=== PATIENT | female | born 1945 | race Caucasian/White ===

== ENCOUNTER 2017-01-16 09:31 | Inpatient (IN) ==
[2017-01-16] MEDS ORDERED: NS 1,000 ML IV ONE (09:54)
[2017-01-16] MEDS ORDERED: ZOFRAN IV ONE (09:54)
[2017-01-16] MEDS ORDERED: NORCO-7.5 PO ONE (09:54)
[2017-01-16 10:24] LABS: MANUAL DIFF NEEDED? NO
[2017-01-16 10:27] LABS: BASO% 0.5 % (0.0-0.8); EOS# 0.21 X1000 (0.0-0.7); EOS% 2.2 % (0.0-10.0); HEMATOCRIT 38.2 % (37.0-47.0); HEMOGLOBIN 12.4 g/dL (12.0-16.0); IMM GRAN# 0.01 X1000 (0.0-0.04); IMM GRAN% 0.1 % (0.0-0.5); LYMPH# 1.19 X1000 (1.2-3.4); LYMPH% 12.7 % (20.5-51.1); MCH 26.8 PG (27-31); MCHC 32.5 g/dL (33-37); MCV 82.5 FL (81-99); MONO# 0.51 X1000 (0.11-0.59); MONO% 5.4 % (1.7-9.3); MPV 9.9 FL (7.4-10.4); NEUT% 79.1 % (42.2-75.2); PLT 363 X1000 (130-400); RBC 4.63 XMIL (4.2-5.4)
[2017-01-16 10:45] LABS: INR 0.93 (0.86-1.15); PROTIME 12.8 Seconds (12.1-15.5); PTT PL 30.1 Seconds (22.6-43.9)
[2017-01-16 10:47] LABS: ALBUMIN 4.5 g/dL (3.5-5.0); CALCIUM 9.2 mg/dL (8.8-10.2); POTASSIUM 3.8 mmol/L (3.5-5.1); TOTAL BILIRUBIN 0.4 mg/dL (0.20-1.00); TOTAL PROTEIN 7.9 g/dL (6.3-8.3)
[2017-01-16 10:53] LABS: URINE CULTURE PL NEEDED? NO
[2017-01-16 10:57] LABS: BILIRUBIN URINE NEGATIVE (NEGATIVE); BLOOD URINE NEGATIVE (NEGATIVE); CLARITY CLEAR (CLEAR); COLOR YELLOW; GLUCOSE URINE NEGATIVE (NEGATIVE); LEUKOCYTES URINE NEGATIVE (NEGATIVE); NITRITE URINE NEGATIVE (NEGATIVE); PROTEIN URINE NEGATIVE (NEGATIVE); SP GRAVITY URINE 1.015; UROBILINOGEN URINE NORMAL
[2017-01-16 11:28] LABS: URINE CAST NONE SEEN /LPF; URINE CRYSTAL NONE SEEN /HPF; URINE EPITHELIAL CELLS >10 /HPF (<10); URINE RBC <10 /HPF (<10); URINE SOURCE CLEAN CATCH; URINE WBC <10 /HPF (<10)
--- NOTE | 2017-01-16 12:27 | PROVIDER DOCUMENTATION ---
This chart was entered by Vilma Bradshaw Scribe, acting as scribe for Caridad Al MD. HPI-Rash/Wound/ReCheck - General Chief Complaint: Insect Bite/Sting Stated Complaint: INSECT BITE/STING Time Seen by Provider: 01/16/17 09:47 Source: patient Allergies/Adverse Reactions: Allergies Allergy/AdvReac Type Severity Reaction Status Date / Time No Known Allergies Allergy Verified 01/16/17 09:39 Home Medications: Home Medication List Medication Instructions Recorded Confirmed Last Taken Type Levothyroxine [Synthroid] 50 mcg PO DAILY 01/16/17 01/16/17 Unknown History - History of Present Illness-Dermatology Nature of Presenting Problem: 71 yo F presents to the ER with complaint of possible spider/insect bite to R arm last night. Pt has 5 x4 inch area of erythema with central bruise to inner side of R upper arm. States since she got bit she has been nauseous and had 2 episodes of diarrhea. Has a hx of strong reaction to bee stings. Location: reports: upper extremity (R upper arm) Quality: reports: painful Onset/Duration: reports: last night Context/Associated Symptoms: reports: unknown bite/sting Review of Systems - Adult - REVIEW OF SYSTEMS - ADULT Constitutional: denies: chills, fever Eyes: reports: no symptoms reported Ears, Nose, Mouth & Throat: reports: no symptoms reported Cardiovascular: reports: no symptoms reported Respiratory: denies: cough, shortness of breath Gastrointestinal: reports: diarrhea, nausea. denies: abdominal pain, vomiting Genitourinary: reports: no symptoms reported Musculoskeletal: reports: no symptoms reported Integumentary: reports: no symptoms reported Neurological: reports: no symptoms reported Psychiatric: reports: no symptoms reported Endocrine: reports: no symptoms reported Hematologic/Lymphatic: reports: no symptoms reported Allergic/Immunologic: reports: no symptoms reported All Other Systems: Reviewed and Negative Past History - Adult - PAST MEDICAL HISTORY-ADULT Review of Records: reports: Nursing Assessment Review, Medications Reviewed Endocrine/Immune: reports: thyroid disorder - PRIOR SURGERIES/PROCEDURES Surgical/Procedure History: reports: appendectomy, hysterectomy - IMMUNIZATION STATUS Childhood Immunizations: See Nurse Assessment Flu Vaccine: See Nurse Assessment Physical Exam-General - PHYSICAL EXAM-ADULT Initial Vital Signs Reviewed: Yes - CONSTITUTIONAL General Appearance: alert, no apparent distress - EYES Eyes: PERRL/EOMI, pink conjunctivae - HEAD, EARS, NOSE, MOUTH & THROAT HENMT: normocephalic/atraumatic, normal ENT inspection - NECK Neck: supple, normal inspection - RESPIRATORY Respiratory: no respiratory distress, no accessory muscle use - CARDIOVASCULAR Cardiovascular: normal peripheral pulses, regular rate, rhythm - MUSCULOSKELETAL Back Exam: no CVA tenderness, no vertebral tenderness Extremity: normal gait, normal inspection - SKIN Integumentary: ecchymosis (R upper, inner arm, center of erythemic area), erythema (R upper, inner arm, 4x5in area), swelling (R upper, inner arm), tenderness (r upper, inner arm) - NEUROLOGIC Neurologic: grossly normal, no motor/sensory deficits - PSYCHIATRIC Psych/Mental Status: normal mood/affect, normal thought content, normal thought process, oriented x 3 Progress - PLAN OF CARE/RESULTS Progress/Plan/Lab Results: Vital Signs - 8 hr 01/16/17 09:33 01/16/17 09:43 Temperature 99.3 F 97.7 F Pulse Rate 84 Respiratory Rate 16 Blood Pressure 151/80 O2 Sat by Pulse Oximetry 95 Laboratory Results - last 24 hr 01/16/17 01/16/17 01/16/17 10:12 10:12 10:12 WBC 9.40 RBC 4.63 Hgb 12.4 Hct 38.2 MCV 82.5 MCH 26.8 L MCHC 32.5 L RDW Std Deviation 16.6 H Plt Count 363 MPV 9.9 Immature Gran % (Auto) 0.1 Neut % (Auto) 79.1 H Lymph % (Auto) 12.7 L [place] % (Auto) 5.4 Eos % (Auto) 2.2 Baso % (Auto) 0.5 Immature Gran # (Auto) 0.01 Neut # (Auto) 7.43 H Lymph # (Auto) 1.19 L [place] # (Auto) 0.51 Eos # (Auto) 0.21 Baso # (Auto) 0.05 PT 12.8 INR 0.93 APTT (Factor Assay) 30.1 Sodium 138 Potassium 3.8 Chloride 102 Carbon Dioxide 20 L Anion Gap 16 BUN 19 Creatinine 1.0 H Estimated GFR/1.73 m2 55 BUN/Creatinine Ratio 19 Glucose 105 H Calculated Osmolality 278 Calcium 9.2 Total Bilirubin 0.40 AST 22 ALT 11 Alkaline Phosphatase 110 H Total Protein 7.9 Albumin 4.5 Globulin 3.0 Albumin/Globulin Ratio 1.0 Amylase 62 Lipase 30 Urine Source Urine Color Urine Clarity Urine pH Ur Specific [place] Urine Protein Urine Ketones Urine Blood Urine Nitrite Urine Bilirubin Urine Urobilinogen Urine Microscopic RBC Urine WBC Urine Microscopic WBC Ur Epithelial Cells Urine Crystals Urine Bacteria Urine Casts Urine Yeast Urine Glucose 01/16/17 10:40 WBC RBC Hgb Hct MCV MCH MCHC RDW Std Deviation Plt Count MPV Immature Gran % (Auto) Neut % (Auto) Lymph % (Auto) [place] % (Auto) Eos % (Auto) Baso % (Auto) Immature Gran # (Auto) Neut # (Auto) Lymph # (Auto) [place] # (Auto) Eos # (Auto) Baso # (Auto) PT INR APTT (Factor Assay) Sodium Potassium Chloride Carbon Dioxide Anion Gap BUN Creatinine Estimated GFR/1.73 m2 BUN/Creatinine Ratio Glucose Calculated Osmolality Calcium Total Bilirubin AST ALT Alkaline Phosphatase Total Protein Albumin Globulin Albumin/Globulin Ratio Amylase Lipase Urine Source CLEAN CATCH Urine Color YELLOW Urine Clarity CLEAR Urine pH 6.0 Ur Specific [place] 1.015 Urine Protein NEGATIVE Urine Ketones NEGATIVE Urine Blood NEGATIVE Urine Nitrite NEGATIVE Urine Bilirubin NEGATIVE Urine Urobilinogen NORMAL Urine Microscopic RBC <10 Urine WBC NEGATIVE Urine Microscopic WBC <10 Ur Epithelial Cells >10 A Urine Crystals NONE SEEN Urine Bacteria NEGATIVE Urine Casts NONE SEEN Urine Yeast NONE SEEN Urine Glucose NEGATIVE Orders Category Date Time Status Saline Loc DIRECTED Care 01/16/17 09:55 Active NPO Diet 01/16/17 09:55 Active AMYLASE [CHEM] Stat Lab 01/16/17 10:12 Completed BLOOD CULTURE [BLDCUL] Stat Lab 01/16/17 09:54 Ordered CBC WITH ELECTRONIC DIFF [HEME] Stat Lab 01/16/17 10:12 Completed COMPREHENSIVE METABOLIC PANEL [CHEM] Stat Lab 01/16/17 10:12 Completed LIPASE [CHEM] Stat Lab 01/16/17 10:12 Completed [address]IME WITH INR PL [COAG] Stat Lab 01/16/17 10:[address] [COAG] Stat Lab 01/16/17 10:[address] W/POSS RFLX CULT [URINALYSIS] Stat Lab 01/16/17 10:40 Completed 0.9% Sodium Chloride Inj [Ns] 1,000 ml Med 01/16/17 09:54 Discontinued IV 500 mls/hr Hydrocodone/APAP 7.5 mg/325 mg [[place]-7.5] Med 01/16/17 09:54 Discontinued 1 each PO NOW ONE Ondansetron [Zofran] Med 01/16/17 09:54 Discontinued 4 mg IV NOW ONE Result Diagrams: 01/16/17 10:12 01/16/17 10:12 - CONSULTS/PCP/HOSPITALIST Notification #1 *Consult/PCP/Hospitalist*: Dr. Kasper Time Discussed: 12:26 Reason/Comments: Admit Departure - Departure Date of Disposition Decision: 01/16/17 Time of Disposition Decision: 12:26 DIAGNOSIS: Toxic effect of bite of venomous spider Disposition: ADMITTED INPATIENT 09 Certified Medical Emergency: Emergent Condition: Stable Referrals and Follow-Ups: Anna Marie Varghese MD [Primary Care Provider] - - Critical Care Note This patient required my direct & personal management of CC.: No This chart was documented by the indicated scribe, (Vilma Bradshaw Scribe) and accurately reflects the services I performed and decisions made by me, Caridad Al MD, as attested by the provider's signature.
[2017-01-16] MEDS ORDERED: BOOSTRIX VACCINE IM ONE (12:28)
--- NOTE | 2017-01-16 14:16 | HISTORY AND PHYSICAL ---
PRIMARY CARE PHYSICIAN: Dr. Anna Marie Varghese. CHIEF COMPLAINT: Spider bite to her right triceps area that occurred last night around midnight. HISTORY OF PRESENTING ILLNESS: This is a 71-year-old female who presented to [facility] ER with complaints of a spider bite to her right triceps area that occurred around midnight last night when she went outside. After she came back in she began having pain to her right triceps area. She began having some nausea, headache, and diarrhea x2. On arrival to the emergency room. She is noted to have 5 x 4 inch erythema to her right triceps area with a central bruise to the area. She states that she has pain from her right triceps, all the way down to her fingertips. Laboratory data was unremarkable, but she will be admitted for further evaluation and treatment. PAST MEDICAL HISTORY: Hypothyroidism. PAST SURGICAL HISTORY: Appendectomy and a hysterectomy. FAMILY HISTORY: Noncontributory. SOCIAL HISTORY: She currently lives with family. Denies any tobacco, alcohol, or illicit drug use. ALLERGIES: She has no known drug allergies. HOME MEDICATIONS: She takes Synthroid 50 mcg p.o. daily. LABORATORY DATA: Showed a white blood cell count of 9.40, hemoglobin 12.4, hematocrit 38.2, platelets 363,000. PT and INR of 12.8 and 0.93. Sodium of 138, potassium 3.8, chloride 102, CO2 20, BUN of 19, creatinine 1, glucose 105. Amylase of 62, lipase of 30. Urinalysis was negative. REVIEW OF SYSTEMS: She denied any fever, chills, blurred vision, dizziness, chest pain, coughing, or shortness of breath. She was positive for nausea and diarrhea x2 and a headache. Pain to her right triceps area of her arm with pain down to her finger tips. PHYSICAL EXAMINATION: VITAL SIGNS: On arrival had a temperature of 99.3 degrees, pulse 84, respirations 16, blood pressure 151/80, saturating 95% on room air. GENERAL: This is a 71-year-old female who is lying in the bed and answers questions appropriately. HEENT: Normocephalic and atraumatic. Pupils are equal, round, reactive to light. Extraocular movements are intact. Oropharynx and nares are clear. NECK: Supple. LUNGS: Clear to auscultation bilaterally with equal lung expansion and chest wall movement. HEART: With regular rate and rhythm. No murmurs, rubs, or gallops. ABDOMEN: Soft, nontender, nondistended. Bowel sounds are present x4 quadrants. EXTREMITIES: Patient is noted to have to her right triceps area 5 x 4 erythema with a central bruise. Warmth to touch. No drainage is noted. Otherwise, no clubbing, cyanosis, or edema. NEUROLOGICAL: The cranial nerves 2 through 12 are grossly intact. ASSESSMENT: 1. Right triceps cellulitis secondary to a spider bite. 2. Hypothyroidism. PLAN: She is being admitted to the medical unit at [facility]. Placed on a regular diet. We will start her on clindamycin 600 mg IV q.8, Zofran 4 mg IV q.4 p.r.n. Continue her home medications and give [place] 7.5 one p.o. q.4 hours p.r.n. Blood cultures x2 are pending. Dictated by CHERRY Anderson for Romain Kasper MD cc: CHERRY Anderson MD Sarah E. Styers, MD
[2017-01-16] MEDS: NORCO-7.5 PO PRN ×2 (14:56→20:21)
[2017-01-16] MEDS: CLINDAMYCIN 600 MG/NS 600 MG/50 ML IVPB IV SCH ×2 (14:57→20:21)
[2017-01-16] MEDS ORDERED: DILAUDID IV PRN (20:14)
[2017-01-16] MEDS: NORVASC PO SCH (21:45)
[2017-01-16] MEDS: ZETIA PO SCH (21:45)
[2017-01-16] MEDS: LOTENSIN PO SCH (21:45)
[2017-01-16] MEDS: ZOFRAN IV PRN (22:10)
[2017-01-17] MEDS: ZOFRAN IV PRN ×3 (03:28→20:49)
[2017-01-17] MEDS: CLINDAMYCIN 600 MG/NS 600 MG/50 ML IVPB IV SCH ×3 (04:01→20:48)
[2017-01-17] MEDS: SYNTHROID PO SCH (06:10)
[2017-01-17] MEDS: NORCO-7.5 PO PRN ×3 (07:12→20:49)
[2017-01-17] MEDS ORDERED: DILAUDID IV PRN (08:14)
--- NOTE | 2017-01-17 08:36 | PROGRESS NOTE ---
DATE: 01/17/2017 SUBJECTIVE: Patient notes that she is having intense pain in her right upper extremity. Notes that the pain may be a little bit worse than when she arrived to the hospital. States that the oral antibiotic does not seem to help. She did have some nausea but she does not think that this was secondary to 1 dose of Dilaudid that she received, although she did throw up after the 1 dose. She was nauseated before she was given the medication. Denies any chest pain or palpitations. Denies any GI or issues. PHYSICAL EXAMINATION: Vital Signs: Temperature 98, pulse 67, respiratory rate 18, BP 123/51, saturation 100% on room air. General: Patient is awake, alert, oriented. She is currently in no respiratory distress. Speech is regular. Memory is intact. Neck: Supple. CV: Regular rate. Chest: Clear and nonlabored. Abdomen: Soft. Extremities: Moves all extremities. Neurologic: No changes. Skin: She is noted to have a 4 x 5 erythematous area on her right triceps. It is very tender to the touch. It is indurated, warm to the touch, erythematous with a central bruise. ASSESSMENT: 1. Right triceps cellulitis, presumed secondary to spider bite. 2. Hypothyroidism. 3. Poor pain control. 4. Hypertension. 5. Chronic obstructive pulmonary disease. PLAN: We will continue patient on her current antibiotics. We will increase her Dilaudid to 1-2 mg. If she persists with nausea, certainly may change to Demerol at that point. We will continue clindamycin but we will add Bactrim and we will follow. cc: Romain Kasper MD
[2017-01-17] MEDS: SEPTRA DS PO SCH ×2 (09:18→20:49)
[2017-01-17] MEDS: LOTENSIN PO SCH (20:49)
[2017-01-17] MEDS: NORVASC PO SCH (20:49)
[2017-01-17] MEDS: ZETIA PO SCH (20:49)
[2017-01-18] MEDS ORDERED: SODIUM CHLORIDE 0.9% INJ ONE (00:22)
[2017-01-18] MEDS ORDERED: PHENERGAN IV ONE (00:22)
[2017-01-18] MEDS: NORCO-7.5 PO PRN ×4 (00:43→20:27)
[2017-01-18] MEDS: CLINDAMYCIN 600 MG/NS 600 MG/50 ML IVPB IV SCH (04:02)
[2017-01-18] MEDS: SYNTHROID PO SCH (06:01)
--- NOTE | 2017-01-18 08:16 | PROGRESS NOTE ---
DATE: 01/18/2017 SUBJECTIVE: The patient notes that her right elbow is much improved, has less swelling. She does have a blister on it. Denies any chest pain or palpitations. Denies any fevers or chills. Notes that overall, she is feeling better. Her pain is actually much better controlled. She took p.o. medication for pain this morning. OBJECTIVE: Vital Signs: Temperature 98, pulse 67, respiratory rate 18, BP 115/64, sat 100% on room air. General: The patient is a thin, elderly female who is in no respiratory distress. She is awake, alert, oriented. Neck: Supple. CV: Regular rate. Chest: Clear. Abdomen: Soft. Extremities: Moves all extremities. Skin: Right triceps area is much improved. She denies wrinkles in skin, much less induration, much less erythema, less pain. She is noted to have a blister. LABORATORY DATA: Labs are currently pending this morning. Blood culture is negative so far. ASSESSMENT: 1. Cellulitis, right triceps, much improved. 2. Hypothyroidism. 3. Pain control, much improved. PLAN: Will change her over to clindamycin 300 three times a day p.o. Will continue Bactrim p.o. as she does not have a culture that is growing anything. Will continue her home Synthroid. Restarted her Zetia. Will ask Wound to evaluate her triceps area. Hopefully home in 1 to 2 days. cc: Romain Kasper MD
[2017-01-18] MEDS ORDERED: BROVANA NEB INH SCH (09:00)
[2017-01-18] MEDS ORDERED: SYNTHROID PO SCH (09:00)
[2017-01-18] MEDS: CLEOCIN PO SCH ×3 (10:04→18:45)
[2017-01-18] MEDS: SEPTRA DS PO SCH ×2 (10:06→20:26)
[2017-01-18 10:19] LABS: HEMATOCRIT 35.4 % (37.0-47.0); HEMOGLOBIN 11.5 g/dL (12.0-16.0); MCH 27.1 PG (27-31); MCHC 32.5 g/dL (33-37); MCV 83.3 FL (81-99); MPV 10.7 FL (7.4-10.4); RBC 4.25 XMIL (4.2-5.4)
[2017-01-18 10:23] LABS: AGAP 15; ALBUMIN 3.1 g/dL (3.5-5.0); ALKALINE PHOSPHATASE 92 U/L (32-104); BUN 8 mg/dL (8-22); CALCIUM 8.1 mg/dL (8.8-10.2); CHLORIDE 97 mmol/L (98-107); COSMO 264; GOT 16 U/L (10-30); GPT 8 U/L (10-36); SODIUM 133 mmol/L (136-145); TCO2 20 mmol/L (25-35); TOTAL PROTEIN 6.2 g/dL (6.3-8.3)
[2017-01-18] MEDS: ZOFRAN IV PRN ×2 (14:44→20:27)
[2017-01-18] MEDS ORDERED: KLOR-CON PO ONE (18:12)
[2017-01-18] MEDS: NORVASC PO SCH (20:26)
[2017-01-18] MEDS: ZETIA PO SCH (20:26)
[2017-01-18] MEDS: LOTENSIN PO SCH (20:26)
[2017-01-18] MEDS ORDERED: LOTENSIN PO SCH (21:00)
[2017-01-18] MEDS ORDERED: NORVASC PO SCH (21:00)
[2017-01-18] MEDS ORDERED: ZETIA PO SCH (21:00)
[2017-01-19] MEDS: ZOFRAN IV PRN ×3 (00:03→08:38)
[2017-01-19] MEDS: NORCO-7.5 PO PRN ×3 (00:03→08:34)
[2017-01-19] MEDS: SYNTHROID PO SCH (06:00)
[2017-01-19 07:25] VITALS: BP 126/50
[2017-01-19 07:40] LABS: HEMATOCRIT 33.6 % (37.0-47.0); HEMOGLOBIN 10.8 g/dL (12.0-16.0); MCH 26.4 PG (27-31); MCHC 32.1 g/dL (33-37); MCV 82.2 FL (81-99); MPV 10.3 FL (7.4-10.4); RBC 4.09 XMIL (4.2-5.4)
[2017-01-19 08:13] LABS: AGAP 12; ALBUMIN 3.4 g/dL (3.5-5.0); ALKALINE PHOSPHATASE 89 U/L (32-104); BUN 11 mg/dL (8-22); CALCIUM 8.3 mg/dL (8.8-10.2); CHLORIDE 102 mmol/L (98-107); COSMO 274; GOT 14 U/L (10-30); GPT 9 U/L (10-36); POTASSIUM 3.3 mmol/L (3.5-5.1); SODIUM 138 mmol/L (136-145); TCO2 24 mmol/L (25-35); TOTAL PROTEIN 6.3 g/dL (6.3-8.3)
[2017-01-19] MEDS: SEPTRA DS PO SCH (08:35)
[2017-01-19] MEDS: CLEOCIN PO SCH (08:35)
[2017-01-19] MEDS ORDERED: DIFLUCAN PO SCH (11:00)
--- NOTE | 2017-01-21 20:27 | DISCHARGE SUMMARY ---
ADMISSION DATE: 01/16/2017 DISCHARGE DATE: 01/19/2017 ADMISSION DIAGNOSES: 1. Right triceps cellulitis secondary to spider bite. 2. Hypothyroidism. DISCHARGE DIAGNOSES: 1. Right triceps cellulitis secondary to spider bite, improved. 2. Hypothyroidism. SUMMARY OF FINDINGS: This is a 71-year-old female who presented with a spider bite to her right triceps area that occurred on the midnight of the day of arrival when she went outside. When she came back in home she began having pain to her right triceps area with some nausea, headache, and diarrhea x2. When she came to the emergency room she was noted to have a 5 x 4 inch erythematous area to her right triceps with a central bruise to the center with pain to her right triceps, all the way down to her fingers. She was admitted, placed on IV antibiotics, IV Zofran, [place] 7.5 q.4 hours p.r.n. She tolerated her antibiotics well. She remained afebrile for greater than 24 hours, her erythema improved, her pain improved, and it is now felt that she can safely be discharged home. DISCHARGE MEDICATIONS: Amlodipine 5 mg p.o. at bedtime, benazepril 10 mg p.o. at bedtime, clindamycin prescription 300 mg p.o. t.i.d., #30 with no refills, Zetia 10 mg p.o. at bedtime, [place] 7.5 one p.o. q.4 hours p.r.n., #20 with no refills, Synthroid 50 mcg p.o. q.a.m., Zofran ODT 4 mg p.o. 2-4 times daily p.r.n., #45 with no refills, and Bactrim DS 1 p.o. b.i.d., #20 with no refills. FOLLOWUP: She will need to follow up with her primary care physician in 1-2 weeks and call their office for an appointment time. TIME SPENT: 35 minutes. Dictated by CHERRY Anderson for Romain Kasper MD cc: CHERRY Anderson MD Sarah E. Styers, MD
== END 2017-01-19 11:10 | disposition home or self-care (01) ==
LOC: P.ED 09:31 → P.MEDSURG 12:39
PROVIDERS: ATTEND Family Medicine